=== PATIENT | male | born 1975 | race African-American/Black ===

== ENCOUNTER 2019-04-03 12:25 | Emergency (ER) | payer MEDICARE ==
[~2019-04-03] VITALS: Ht 172.7 cm; Wt 95.0 kg
[2019-04-03 12:32] VITALS: BP 111/73; Ht 172.7 cm; Wt 95.0 kg
[2019-04-03] MEDS ORDERED: DEPAKENE250 MG PO ×2 (12:34)
[2019-04-03] MEDS ORDERED: NOVOLIN 70/30 110 ML SC ×2 (12:35→12:36)
[2019-04-03] MEDS ORDERED: LANTUS INSULIN10 ML SC (12:35)
[2019-04-03 13:05] LABS: BASOPHILS 0.1 % (0-2); EOSINOPHILS 0.7 % (0-7); HEMATOCRIT 40.9 % (42.0-54.0); HEMOGLOBIN 14.2 g/dL (13.5-17.5); IMMATURE GRANULOCYTES 0.1 % (0-5); LYMPHOCYTES 13.2 % (15-50); MCH 27.8 pg (26.0-34.0); MCHC 34.7 g/dL (31.0-37.0); MCV 80.2 fL (80.0-100.0); MEAN PLATELET VOLUME 9.9 fL (7.4-10.4); MONOCYTES 6.1 % (2-11); NEUTROPHILS 79.8 % (40-80); PLATELET COUNT 291 10x3/uL (130-400); RDW 13.7 % (11.5-14.5); WBC 7.4 10x3/uL (4.8-10.8)
[2019-04-03 13:06] LABS: APPEARANCE CLEAR (CLEAR); BILIRUBIN NEGATIVE (NEGATIVE); COLOR YELLOW (YELLOW); GLUCOSE NEGATIVE (NEGATIVE); KETONE NEGATIVE (NEGATIVE); NITRITE NEGATIVE (NEGATIVE); PROTEIN NEGATIVE (NEGATIVE)
[2019-04-03 13:11] LABS: ALBUMIN 3.8 g/dL (3.4-5.0); ALKALINE PHOSPHATASE 73 U/L (46-116); ALT (SGPT) 26 U/L (10-68); BILIRUBIN - TOTAL 0.39 mg/dL (0.2-1.3); CALC OSMOLALITY 271 mosm/kg (275-300); CALCIUM 8.9 mg/dL (8.5-10.1); CARBON DIOXIDE 26.3 mmol/L (21.0-32.0); CHLORIDE - SERUM 102 mmol/L (98-107); CREATININE - SERUM 1.1 mg/dL (0.6-1.3); GLUCOSE 132 mg/dL (74-106); POTASSIUM - SERUM 4.2 mmol/L (3.5-5.1); PROTEIN - SERUM 7.5 g/dL (6.4-8.2); SODIUM 136 mmol/L (136-145); UREA NITROGEN 8 mg/dL (7-18); eGFR NON AFRICAN AMERICAN 77 mL/min (90-120)
== END 2019-04-03 15:40 | disposition left against medical advice (07) ==
LOC: D.ER 12:25
PROVIDERS: Emergency Medicine
DX: R50.9 Fever, unspecified (principal); M79.18 Myalgia, other site